=== PATIENT | female | born 1955 | race Caucasian/White ===

== ENCOUNTER 2022-09-05 15:38 | Emergency (ER) | payer MEDICARE, OTHER ==
[~2022-09-05] VITALS: Ht 165.1 cm; Wt 75.3 kg
[2022-09-05] MEDS ORDERED: LIPITOR20 MG PO (18:14)
[2022-09-05] MEDS ORDERED: SEROQUEL XR300 MG PO (18:15)
[2022-09-05] MEDS ORDERED: LAMOTRIGINE150 MG PO (18:15)
== END 2022-09-05 20:32 | disposition home or self-care (01) ==
LOC: ED 15:38
DX: S09.90XA Unspecified injury of head, initial encounter (principal); E78.5 Hyperlipidemia, unspecified; Z88.8 Allergy status to other drugs, medicaments and biological substances; Z88.5 Allergy status to narcotic agent; Z79.899 Other long term (current) drug therapy; W19.XXXA Unspecified fall, initial encounter
CPT/HCPCS: 70450; 96372; 99283-25; J2060

== ENCOUNTER 2022-12-15 13:44 | Emergency (ER) | payer MEDICARE, OTHER ==
[~2022-12-15] VITALS: Ht 165.1 cm; Wt 80.3 kg
[~2022-12-15 13:44] MED LIST: LAMOTRIGINE150 MG PO; LIPITOR20 MG PO; SEROQUEL XR300 MG PO
[2022-12-15 16:10] VITALS: BP 116/101
== END 2022-12-15 16:12 | disposition home or self-care (01) ==
LOC: ED 13:44
DX: S09.90XA Unspecified injury of head, initial encounter (principal); W22.01XA Walked into wall, initial encounter; Z88.5 Allergy status to narcotic agent; Z79.899 Other long term (current) drug therapy
CPT/HCPCS: 70450; 96372; 99283-25; J2060

== ENCOUNTER 2022-12-27 11:14 | Emergency (ER) | payer MEDICARE, OTHER ==
[~2022-12-27] VITALS: Ht 165.1 cm; Wt 80.3 kg
--- OUTSIDE RECORDS SUMMARY | 2022-12-27 11:24 | XMS ---
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 Abhijit VISIT COUNT (12 MO.) [address] TOTAL 4 NOTE: Visits indicate total known visits. 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 - Unspecified injury of head, initial encounter - Walked into wall, initial encounter 09/05/2022 15:39 [facility] [place] TYPE: Emergency COMPLAINT: - HEAD INJURY DIAGNOSES: - Allergy status to narcotic agent - Allergy status to other drugs, medicaments and biological substances - Hyperlipidemia, unspecified - Other long-term (current) drug therapy - Unspecified fall, initial encounter - Unspecified injury of head, initial encounter 07/12/2022 19:15 [facility] [place] TYPE: Emergency DIAGNOSES: - Constipation, unspecified - CONSTIPATED INPATIENT VISIT TRACKING (12 MO.) No inpatient visits to display in this time frame [id number]
[2022-12-27 13:55] VITALS: BP 126/105
== END 2022-12-27 13:57 | disposition home or self-care (01) ==
LOC: ED 11:14
DX: K59.00 Constipation, unspecified (principal); E78.5 Hyperlipidemia, unspecified; Z88.8 Allergy status to other drugs, medicaments and biological substances; Z88.5 Allergy status to narcotic agent; Z79.899 Other long term (current) drug therapy
CPT/HCPCS: 36415; 74177; 80053; 83690; 85025; 96376; 99284-25; J2060; Q9967

== ENCOUNTER 2023-04-11 12:06 | Emergency (ER) | payer MEDICARE, OTHER ==
[~2023-04-11] VITALS: Ht 165.1 cm; Wt 80.3 kg
--- OUTSIDE RECORDS SUMMARY | ~2023-04-11 | XMS | Continuity of Care Document ---
Demographics + + + | Address | [address] | | | [place] [address] | + + + | Preferred Language | Unknown | + + + | Marital Status | Never | + + + | Mosque Affiliation | Unknown | + + + | Race | White | + + + | Ethnic Group | Not or | + + + Author + + + | Author | [facility] | + + + | Organization | [facility] | + + + | Address | [address] | | | [place] [address] | + + + | Phone | | + + + Care Team Providers + + + + | Care Employee Communications Coordinator Name | Role | Phone | + + + + Unavailable | Unavailable | + + + + Unavailable | Unavailable | + + + + Unavailable | Unavailable | + + + + Allergies and Intolerances + + + + + + | date | description | facility | reaction | severity | + + + + + + | (no date) | Gabapentin | [facility] | (no reaction) | (no severity) | [facility] | | | + + + + + + | (no date) | Hydrocodone | [facility] | (no reaction) | (no severity) | | [facility] | | | + + + + + + | (no date) | Gabapentin | [facility] | (no reaction) | (no severity) | | [facility] | | | + + + + + + | (no date) | Hydrocodone | [facility] | (no reaction) | (no severity) | | [facility] | | | + + + + + + | (no date) | Gabapentin | [facility] | (no reaction) | (no severity) | | [facility] | | | + + + + + + | (no date) | Hydrocodone | [facility] | (no reaction) | (no severity) | | [facility] | | | + + + + + + Encounters No information. Functional Status No information. Immunizations No information. Medications + + + + | date | description | facility | + + + + | 2022-09-12 00:00 | LAMOTRIGINE | [facility] | + + + + | 2022-12-15 00:00 | LAMOTRIGINE | [facility] | + + + + | 2022-12-27 00:00 | LAMOTRIGINE | [facility] | + + + + | 2023-02-15 00:00 | LAMOTRIGINE | [facility] | + + + + | 2022-09-12 00:00 | ATORVASTATIN | [facility] | + + + + | 2022-12-15 00:00 | ATORVASTATIN | [facility] | + + + + | 2022-12-27 00:00 | ATORVASTATIN | [facility] | + + + + | 2023-02-15 00:00 | ATORVASTATIN | [facility] | + + + + | 2022-09-12 00:00 | QUETIAPINE FUMARATE | [facility] | + + + + | 2022-12-15 00:00 | QUETIAPINE FUMARATE | [facility] | + + + + | 2022-12-27 00:00 | QUETIAPINE FUMARATE | [facility] | + + + + | 2023-02-15 00:00 | QUETIAPINE FUMARATE | [facility] | + + + + Problems + + + + | date | description | facility | + + + + | 2022-09-05 00:00 | Injury of head | [facility] | + + + + | 2022-09-05 00:00 | Injury of head | [facility] | + + + + | 2022-09-05 15:39 | HYPERLIPIDEMIA, | [facility] | | | UNSPECIFIED | | + + + + | 2022-09-05 15:39 | UNSPECIFIED INJURY OF | [facility] | | | HEAD, INITIAL ENCOUNTER | | + + + + | 2022-09-05 15:39 | UNSPECIFIED FALL, INITIAL | [facility] | | | ENCOUNTER | | + + + + | 2022-09-05 15:39 | OTHER LONG-TERM (CURRENT) | [facility] | | | DRUG THERAPY | | + + + + | 2022-09-05 15:39 | ALLERGY STATUS TO NARCOTIC | [facility] | | | AGENT STATUS | | + + + + | 2022-09-05 15:39 | ALLERGY STATUS TO OTH | [facility] | | | DRUG/MEDS/BIOL SUBST STATUS | | | | | | + + + + | 2022-12-15 00:00 | Minor head injury | [facility] | + + + + | 2022-12-15 00:00 | Minor head injury | [facility] | + + + + | 2022-12-15 13:45 | UNSPECIFIED INJURY OF | [facility] | | | HEAD, INITIAL ENCOUNTER | | + + + + | 2022-12-15 13:45 | WALKED INTO WALL, INITIAL | [facility] | | | ENCOUNTER | | + + + + | 2022-12-15 13:45 | OTHER WORM GROWER (CURRENT) | [facility] | | | DRUG THERAPY | | + + + + | 2022-12-15 13:45 | ALLERGY STATUS TO NARCOTIC | [facility] | | | AGENT STATUS | | + + + + | 2022-12-27 00:00 | Constipation | [facility] | + + + + | 2022-12-27 11:17 | HYPERLIPIDEMIA, | [facility] | | | UNSPECIFIED | | + + + + | 2022-12-27 11:17 | CONSTIPATION, UNSPECIFIED | [facility] | + + + + | 2022-12-27 11:17 | OTHER LONG-TERM (CURRENT) | [facility] | | | DRUG THERAPY | | + + + + | 2022-12-27 11:17 | ALLERGY STATUS TO NARCOTIC | [facility] | | | AGENT STATUS | | + + + + | 2022-12-27 11:17 | ALLERGY STATUS TO OTH | [facility] | | | DRUG/MEDS/BIOL SUBST STATUS | | | | | | + + + + | 2023-01-24 14:21 | AUTISTIC DISORDER | [facility] | + + + + | 2023-01-24 14:21 | OTHER REDUCED MOBILITY | [facility] | + + + + | 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 Results/Labs +--------+--------+ +---------+--------+---------+ | test | date | facility | value | unit | notes | +--------+--------+ +---------+--------+---------+ + + | Result panel 1 | + + + + + +-------+ + + | | 2022-12-27 | [facility] | 7.2 | (missing) | (missing) | | (unavailable [facility] | | | | + + + +-------+ + + + + | Result panel 2 | + + + + + +--------+ + + | | 2022-12-27 | [facility] | 82.7 | (missing) | (missing) | | (unavailable [facility] | | | | + + + +--------+ + + + + | Result panel 3 | + + + + + +-------+ + + | | 2022-12-27 | [facility] | 9.3 | (missing) | (missing) | | (unavailable [facility] | | | | + + + +-------+ + + + + | Result panel 4 | + + + + + +-------+ + + | | 2022-12-27 | [facility] | 5.3 | (missing) | (missing) | | (unavailable [facility] | | | | + + + +-------+ + + + + | Result panel 5 | + + + + + +-------+ + + | | 2022-12-27 | [facility] | 2.5 | (missing) | (missing) | | (unavailable [facility] | | | | + + + +-------+ + + + + | Result panel 6 | + + + + + +-------+ + + | | 2022-12-27 | [facility] | 0.2 | (missing) | (missing) | | (unavailable [facility] | | | | + + + +-------+ + + + + | Result panel 7 | + + + + + +-------+---------+ + | | 2022-12-27 | [facility] | 160 | mg/dL | (missing) | | (unavailable | [facility] | | | | + + + +-------+---------+ + + + | Result panel 8 | + + + + + +------+---------+ + | | 2022-12-27 | [facility] | 16 | mg/dL | (missing) | | (unavailable | [facility] | | | | + + + +------+---------+ + + + | Result panel 9 | + + + + + +--------+---------+ + | | 2022-12-27 | [facility] | 0.93 | mg/dL | (missing) | | (unavailable [facility] | | | | + + + +--------+---------+ + + + | Result panel 10 | + + + + + +------+ + + | | 2022-12-27 | [facility] | 68 | (missing) | (missing) | | (unavailable [facility] | | | + + + +------+ + + + + | Result panel 11 | + + + + + +---------+ + + | | 2022-12-27 | [facility] | 17.20 | (missing) | (missing) | | (unavailable [facility] | | | | + + + +---------+ + + + + | Result panel 12 | + + + + + +--------+ + + | | 2022-12-27 | [facility] | 4.88 | (missing) | (missing) | | (unavailable [facility] | | | | + + + +--------+ + + + + | Result panel 13 | + + + + + +-------+ + + | | 2022-12-27 | [facility] | 145 | (missing) | (missing) | | (unavailable [facility] | | | | + + + +-------+ + + + + | Result panel 14 | + + + + + +-------+ + + | | 2022-12-27 | [facility] | 3.8 | (missing) | (missing) | | (unavailable [facility] | | | | + + + +-------+ + + + + | Result panel 15 | + + + + + +-------+ + + | | 2022-12-27 | [facility] | 107 | (missing) | (missing) | | (unavailable [facility] | | | | + + + +-------+ + + + + | Result panel 16 | + + + + + +------+ + + | | 2022-12-27 | [facility] | 33 | (missing) | (missing) | | (unavailable [facility] | | | | + + + +------+ + + + + | Result panel 17 | + + + + + +-------+ + + | | 2022-12-27 | [facility] | 8.8 | (missing) | (missing) | | (unavailable [facility] | | | + + + +-------+ + + + + | Result panel 18 | + + + + + +-------+---------+ + | | 2022-12-27 | [facility] | 9.6 | mg/dL | (missing) | | (unavailable | [facility] | | | | + + + +-------+---------+ + + + | Result panel 19 | + + + + + +-------+ + + | | 2022-12-27 | [facility] | 8.1 | (missing) | (missing) | | (unavailable [facility] | | | | + + + +-------+ + + + + | Result panel 20 | + + + + + +-------+ + + | | 2022-12-27 | [facility] | 3.6 | (missing) | (missing) | | (unavailable [facility] | | | + + + +-------+ + + + + | Result panel 21 | + + + + + +-------+ + + | | 2022-12-27 | [facility] | 4.5 | (missing) | (missing) | | (unavailable [facility] | | | + + + +-------+ + + + + | Result panel 22 | + + + + + +--------+ + + | | 2022-12-27 | [facility] | 0.80 | (missing) | (missing) | | (unavailable [facility] | | | + + + +--------+ + + + + | Result panel 23 | + + + + + +--------+ + + | | 2022-12-27 | [facility] | 13.3 | (missing) | (missing) | | (unavailable [facility] | | | | + + + +--------+ + + + + | Result panel 24 | + + + + + +-------+ + + | | 2022-12-27 | [facility] | 0.3 | (missing) | (missing) | | (unavailable [facility] | | | | + + + +-------+ + + + + | Result panel 25 | + + + + + +------+ + + | | 2022-12-27 | [facility] | 24 | (missing) | (missing) | | (unavailable [facility] | | | | + + + +------+ + + + + | Result panel 26 | + + + + + +------+ + + | | 2022-12-27 | [facility] | 10 | (missing) | (missing) | | (unavailable [facility] | | | | + + + +------+ + + + + | Result panel 27 | + + + + + +-------+ + + | | 2022-12-27 | [facility] | 142 | (missing) | (missing) | | (unavailable [facility] | | | | + + + +-------+ + + + + | Result panel 28 | + + + + + +-------+ + + | | 2022-12-27 | [facility] | 157 | (missing) | (missing) | | (unavailable | [facility] | | | | + + + +-------+ + + + + | Result panel 29 | + + + + + +--------+ + + | | 2022-12-27 | [facility] | 40.8 | (missing) | (missing) | | (unavailable [facility] | | | | + + + +--------+ + + + + | Result panel 30 | + + + + + +--------+ + + | | 2022-12-27 | [facility] | 83.4 | (missing) | (missing) | | (unavailable [facility] | | | | + + + +--------+ + + + + | Result panel 31 | + + + + + +--------+ + + | | 2022-12-27 | [facility] | 27.3 | (missing) | (missing) | | (unavailable [facility] | | | | + + + +--------+ + + + + | Result panel 32 | + + + + + +--------+ + + | | 2022-12-27 | [facility] | 32.7 | (missing) | (missing) | | (unavailable [facility] | | | | + + + +--------+ + + + + | Result panel 33 | + + + + + +--------+ + + | | 2022-12-27 | [facility] | 13.8 | (missing) | (missing) | | (unavailable [facility] | | | | + + + +--------+ + + + + | Result panel 34 | + + + + + +-------+ + + | | 2022-12-27 | [facility] | 258 | (missing) | (missing) | | (unavailable | [facility] | | | | + + + +-------+ + + Social History + + + + | date | description | facility | + + + + | 2022-09-12 00:00 | Unknown if ever smoked | [facility] | + + + + | 2022-12-15 00:00 | Unknown if ever smoked | [facility] | + + + + | 2022-12-27 00:00 | Unknown if ever smoked | [facility] | + + + + | 2023-02-15 00:00 | Unknown if ever smoked | [facility] | + + + + Vital Signs + + + +---------+ | date | measurement | value | units | + + + +---------+ | 2022-09-05 00:00 | BMI | 27.6 | kg/m2 | + + + +---------+ | 2022-09-05 00:00 | BP_diastolic | 71 | mmHg | + + + +---------+ | 2022-09-05 00:00 | BP_systolic | 98 | mmHg | + + + +---------+ | 2022-09-05 00:00 | heart_rate | 92 | /min | + + + +---------+ | 2022-09-05 00:00 | height_metric | 165.1 | cm | + + + +---------+ | 2022-09-05 00:00 | height_standard | 65 | in | + + + +---------+ | 2022-09-05 00:00 | o2_saturation | 95 | % | + + + +---------+ | 2022-09-05 00:00 | respiration_rate | 16 | /min | + + + +---------+ | 2022-09-05 00:00 | temperature_metric | 37.17 | C | | | | | | + + + +---------+ | 2022-09-05 00:00 | | 98.9 | F | | | temperature_standar | | | | | d | | | + + + +---------+ | 2022-09-05 00:00 | weight_metric | 75.3 | kg | + + + +---------+ | 2022-09-05 00:00 | weight_standard | 166 | lb | + + + +---------+ | 2022-09-05 00:00 | weight_standard | 166.01 | lb | + + + +---------+ | 2022-12-15 00:00 | BMI | 29.5 | kg/m2 | + + + +---------+ | 2022-12-15 00:00 | BP_diastolic | 101 | mmHg | + + + +---------+ | 2022-12-15 00:00 | BP_systolic | 116 | mmHg | + + + +---------+ | 2022-12-15 00:00 | heart_rate | 80 | /min | + + + +---------+ | 2022-12-15 00:00 | height_metric | 165.1 | cm | + + + +---------+ | 2022-12-15 00:00 | height_standard | 65 | in | + + + +---------+ | 2022-12-15 00:00 | o2_saturation | 95 | % | + + + +---------+ | 2022-12-15 00:00 | respiration_rate | 18 | /min | + + + +---------+ | 2022-12-15 00:00 | temperature_metric | 36.67 | C | | | | | | + + + +---------+ | 2022-12-15 00:00 | | 98 | F | | | temperature_standar | | | | | d | | | + + + +---------+ | 2022-12-15 00:00 | weight_metric | 80.29 | kg | + + + +---------+ | 2022-12-15 00:00 | weight_standard | 177 | lb | + + + +---------+ | 2022-12-15 00:00 | weight_standard | 177.01 | lb | + + + +---------+ | 2022-12-27 00:00 | BMI | 29.5 | kg/m2 | + + + +---------+ | 2022-12-27 00:00 | BP_diastolic | 105 | mmHg | + + + +---------+ | 2022-12-27 00:00 | BP_systolic | 126 | mmHg | + + + +---------+ | 2022-12-27 00:00 | heart_rate | 85 | /min | + + + +---------+ | 2022-12-27 00:00 | height_metric | 165.1 | cm | + + + +---------+ | 2022-12-27 00:00 | height_standard | 65 | in | + + + +---------+ | 2022-12-27 00:00 | o2_saturation | 90 | % | + + + +---------+ | 2022-12-27 00:00 | respiration_rate | 20 | /min | + + + +---------+ | 2022-12-27 00:00 | temperature_metric | 36.83 | C | | | | | | + + + +---------+ | 2022-12-27 00:00 | | 98.3 | F | | | temperature_standar | | | | | d | | | + + + +---------+ | 2022-12-27 00:00 | weight_metric | 80.29 | kg | + + + +---------+ | 2022-12-27 00:00 | weight_standard | 177 | lb | + + + +---------+ | 2022-12-27 00:00 | weight_standard | 177.01 | lb | + + + +---------+"
--- OUTSIDE RECORDS SUMMARY | ~2023-04-11 | XMS | Continuity of Care Document ---
Demographics + + + | Address | [address] | | | [place] [address] | + + + | Preferred Language | Unknown | + + + | Marital Status | Never | + + + | Oriental Orthodox Affiliation | Unknown | + + + | Race | White | + + + | Ethnic Group | Not or | + + + Author + + + | Author | [facility] | + + + | Organization | [facility] | + + + | Address | [address] | | | [place] [address] | + + + | Phone | | + + + Care Team Providers + + + + | Care Hospitality Recruiter Name | Role | Phone | + [...] + | 2022-09-12 00:00 | LAMOTRIGINE | [facility] | + + + + | 2022-12-15 00:00 | LAMOTRIGINE | [facility] | + + + + | 2022-12-27 00:00 | LAMOTRIGINE | [facility] | + + + + | 2023-02-15 00:00 | LAMOTRIGINE | [facility] | + + + + | 2022-09-12 00:00 | ATORVASTATIN | [facility] | + + + + | 2022-12-15 00:00 | ATORVASTATIN | [facility] | + + + + | 2022-12-27 00:00 | ATORVASTATIN | [facility] | + + + + | 2023-02-15 00:00 | ATORVASTATIN | [facility] | + + + + | 2022-09-12 00:00 | QUETIAPINE FUMARATE | [facility] | + + + + | 2022-12-15 00:00 | QUETIAPINE FUMARATE | [facility] | + + + + | 2022-12-27 00:00 | QUETIAPINE FUMARATE | [facility] | + + + + | 2023-02-15 00:00 | QUETIAPINE FUMARATE | [facility] | + + + + Problems + + + + | date | description | facility | + + + + | 2022-09-05 00:00 | Injury of head | [facility] | + + + + | 2022-09-05 00:00 | Injury of head | [facility] | + + + + | [...] + + | 2022-09-05 15:39 | OTHER MCC (CURRENT) | [facility] | | | DRUG [...] 2022-12-15 00:00 | Minor head injury | [facility] | + + + + | 2022-12-15 00:00 | Minor head injury | [facility] | + + + + | 2022-12-15 13:45 | UNSPECIFIED INJURY OF | [facility] | | | HEAD, INITIAL ENCOUNTER | | + + + + | 2022-12-15 13:45 | WALKED INTO WALL, INITIAL | [facility] | | | ENCOUNTER | | + + + + | 2022-12-15 13:45 | OTHER CATALYST IMPREGNATOR (CURRENT) | [facility] | | | DRUG THERAPY | | + + + + | 2022-12-15 13:45 | ALLERGY STATUS TO NARCOTIC | [facility] | | | AGENT STATUS | | + + + + | 2022-12-27 00:00 | Constipation | [facility] | + + + + | 2022-12-27 11:17 | HYPERLIPIDEMIA, | [facility] | | | UNSPECIFIED | | + + + + | 2022-12-27 11:17 | CONSTIPATION, UNSPECIFIED | [facility] | + + + + | 2022-12-27 11:17 | OTHER MCC (CURRENT) | [facility] | | | DRUG [...] 00:00 | Unknown if ever smoked | [facility] | + + + + | 2022-12-15 00:00 | Unknown if ever smoked | [facility] | + + + + | 2022-12-27 00:00 | Unknown if ever smoked | [facility] | + + + + | 2023-02-15 00:00 | Unknown if ever smoked | [facility] | + + + + Vital [...]
[2023-04-11] MEDS ORDERED: POLYETHYLENE G500 G2 (12:22)
[2023-04-11 12:57] VITALS: BP 126/104
== END 2023-04-11 12:57 | disposition home or self-care (01) ==
LOC: ED 12:06
DX: S00.93XA Contusion of unspecified part of head, initial encounter (principal); Y04.2XXA Assault by strike against or bumped into by another person, initial encounter; E78.5 Hyperlipidemia, unspecified; Z79.899 Other long term (current) drug therapy
CPT/HCPCS: 99283

== ENCOUNTER 2023-08-15 12:25 | Emergency (ER) | payer OTHER, MEDICARE ==
[~2023-08-15] VITALS: Ht 165.1 cm; Wt 68.0 kg
[~2023-08-15 12:25] MED LIST changes: +POLYETHYLENE G500 G2
[2023-08-15] MEDS ORDERED: VITAMIN D350 MCG PO (13:12)
[2023-08-15] MEDS ORDERED: SENNA8.6 MG PO (13:12)
[2023-08-15 14:16] VITALS: BP 120/75
== END 2023-08-15 14:16 | disposition home or self-care (01) ==
LOC: ED 12:25
DX: S09.90XA Unspecified injury of head, initial encounter (principal); F84.0 Autistic disorder; F88 Other disorders of psychological development; E78.5 Hyperlipidemia, unspecified; Z88.5 Allergy status to narcotic agent; Z88.8 Allergy status to other drugs, medicaments and biological substances; Z79.899 Other long term (current) drug therapy; X58.XXXA Exposure to other specified factors, initial encounter
CPT/HCPCS: 99283

== ENCOUNTER 2024-01-25 13:19 | Emergency (ER) | payer MEDICARE, OTHER ==
[~2024-01-25] VITALS: Ht 182.9 cm; Wt 76.3 kg
[~2024-01-25 13:19] MED LIST changes: +SENNA8.6 MG PO; +VITAMIN D350 MCG PO
[2024-01-25 14:58] VITALS: BP 132/94
== END 2024-01-25 14:59 | disposition home or self-care (01) ==
LOC: ED 13:19
DX: K62.2 Anal prolapse (principal); Z88.5 Allergy status to narcotic agent; Z88.8 Allergy status to other drugs, medicaments and biological substances; Z79.899 Other long term (current) drug therapy
CPT/HCPCS: 99283

== ENCOUNTER 2025-02-24 08:15 | Inpatient (IN) | payer MEDICARE, OTHER ==
[~2025-02-24] VITALS: Ht 182.9 cm; Wt 78.2 kg
[~2025-02-24 08:15] MED LIST changes: +MIRALAX17 GM PO; -POLYETHYLENE G500 G2
[2025-02-24 08:47] LABS: MCH 27.2 PG (25.6-32.2); MCHC 31.3 g/dL (32.2-35.5); MCV 86.9 fL (79.4-94.8); RBC 4.49 M/uL (3.93-5.22)
[2025-02-24 09:05] LABS: ALT (SGPT) 27.0 U/L (14-59); AST (SGOT) 26.0 U/L (15-37); GLOMERULAR FILTRATION RATE,EST 38.0 mL/min (>60); PROTEIN, TOTAL 7.7 g/dL (6.4-8.2); UREA NITROGEN 22.0 mg/dL (7-18)
[2025-02-24 09:11] LABS: LACTIC ACID, BLOOD 6.8 mmol/L (0.4-2.0)
[2025-02-24] MEDS ORDERED: SODIUM CHLORIDE 0.9% 500 ML IV PRN (09:15)
[2025-02-24] MEDS ORDERED: SODIUM CHLORIDE 0.9% 1,000 ML IV PRN (09:15)
[2025-02-24 09:22] LABS: BASOPHILS, MANUAL DIFF 1; LYMPHOCYTES, MANUAL DIFF 19; MONOCYTES, MANUAL DIFF 2; NEUTROPHILS, MANUAL DIFF 78
[2025-02-24 09:32] LABS: BLOOD/HGB, URINE LARGE (Negative); KETONE, URINE TRACE (Negative); LEUK ESTERASE, URINE LARGE (negative); NITRITE, URINE NEGATIVE (negative)
[2025-02-24] MEDS ORDERED: AZITHROMYCIN 500 MG in DEXTROSE 5% 250 ML IV ONE (09:45)
[2025-02-24] MEDS ORDERED: ACETAMINOPHEN 1,000 MG/100 ML VIAL IV ONE (09:45)
[2025-02-24 09:46] LABS: BACTERIA, URINE 4+ /hpf (negative); CASTS, URINE NONE SEEN \\lpf; CRYSTALS, URINE NONE SEEN (0-1+); EPITHELIAL CELLS, URINE 0 /lpf (0-1+); REFLEX CULTURE, URINE Yes (No)
[2025-02-24] MEDS ORDERED: ACETAMINOPHEN 325 MG TAB PO PRN (12:00)
[2025-02-24] MEDS ORDERED: PHARMACY RENAL DOSE ADJUSTMENT 1 DOSE MISC PO SCH (12:00)
[2025-02-24] MEDS ORDERED: SODIUM CHLORIDE 0.9% 1,000 ML IV SCH (12:00)
[2025-02-24 12:45] VITALS: BP 95/53
--- NOTE | 2025-02-24 13:36 | NUR ---
PT RECEIVED FROM TRANSITION MGR PETER. PATIENT PRESENT WITH [facility] PROJECT CAREGIVER NICHOLAS. PATIENT APPEARS TO BE RESTING COMFORTABLY IN BED. PATIENT NONVERBAL AND WHEELCHAIR/BED BOUND WITH HISTORY OF DEVELOPMENTAL DISABILITY. PATIENT NEEDING FREQUENT REDIRECTION FROM IV SITE.
[2025-02-24] MEDS ORDERED: FIBER350 GM PO (16:18)
[2025-02-24] MEDS ORDERED: EAR WAX DROPS15 M1 AU (16:21)
[2025-02-24] MEDS ORDERED: DESITIN 40% PAS28 GM TOP (16:22)
[2025-02-24] MEDS ORDERED: VASELINE18 ML TOP (16:24)
[2025-02-24] MEDS ORDERED: BENZONATATE100 MG PO (16:25)
[2025-02-24] MEDS ORDERED: TYLENOL325 MG PO (16:25)
[2025-02-24] MEDS ORDERED: COLACE100 MG PO (16:26)
[2025-02-24] MEDS ORDERED: ADULT GLYCERIN1 EACH PR (16:29)
--- NOTE | 2025-02-24 16:29 | NUR ---
PT RESTING WITH EYES CLOSED. SITTER SCOTT AT BEDSIDE.
[2025-02-24] MEDS ORDERED: MAGNESIUM CITR296 ML PO (16:31)
--- NOTE | 2025-02-24 16:33 | NUR ---
MED REC COMPLETE
[2025-02-24 17:43] VITALS: BP 146/83
--- NOTE | 2025-02-24 18:32 | NUR ---
SITTER IN ROOM. PT ATE ALL OF DINNER. ST CAME TO SEE AND EVAL PT. STATES SHE ACTUALLY DID WELL BUT WILL ASSESS AGAIN AT BREAKFAST.
--- NOTE | 2025-02-24 18:40 | NUR ---
PATIENT REPLENISHMENT ANALYST IN THE ROOM. SPEECH THERAPY WORKED WITH THE PATIENT.
--- NOTE | 2025-02-24 19:21 | NUR ---
RECEIVED REPORT FROM SEJAL GUERRERO. PT RESTLESS IN BED, NO VERBAL RESPONSE. SITTER AT BEDSIDE FOR SAFETY.
--- NOTE | 2025-02-24 21:15 | NUR ---
PT RESTING IN BED W/ SITTER AT BEDSIDE. PT IS RESTLESS AND CONSTANTLY TOUCHING GOWN, IV TUBING, LINENS, ETC. NON-VERBAL. DOES NOT FOLLOW COMMANDS. HX DD. DOES NOT APPEAR TO HAVE DISCOMFORT. LSC. HRR. BTA, INC BM. NEW PUREWICK PLACED, UO AMEYA AND FOUL SMELLING. RH IV INFUSING NS @ 125MLS/HR. PT SKIN INTACT. CALL LIGHT AT BEDSIDE.
[2025-02-24 21:34] VITALS: BP 115/64
[2025-02-24 21:54] VITALS: BP 115/64
--- NOTE | 2025-02-24 22:11 | EKG ---
[facility] [address] [place] [address] Signed Sinus tachycardia Nonspecific ST and T wave abnormality Abnormal ECG No previous ECGs available Confirmed by Bob Roberts MD () on 02/24/2025 10:11:32 PM Electronically Signed By: BOB ROBERTS MD 02/24/252210 PATIENT NAME: RALEIGH ARCOS Electrocardiogram DATE OF : 57 PHYSICIAN: BOB ROBERTS MD REPORT #: [id number] REPORT IS CONFIDENTIAL AND NOT TO BE RELEASED WITHOUT AUTHORIZATION
--- NOTE | 2025-02-24 22:43 | NUR ---
AWAKE, FIDGETY AND RESTLESS. SITTER AT BEDSIDE FOR LINE/TUBE SAFETY.
--- NOTE | 2025-02-24 23:34 | NUR ---
2 SENIOR LOAN PROCESSOR. PATIENT'S FRESH ATTENDS PLACED AFTER CLEANED. PUREWICK IN PLACE. SIPS OF THICKENED WATER GIVEN. SITTER AT BEDSIDE.
[2025-02-25] VITALS (12 sets, daily range): BP systolic 11–144; BP diastolic 45–92
--- NOTE | 2025-02-25 00:36 | NUR ---
SLEEPING SOUNDLY-APPEARS COMFORTABLE. SITTER REMAINS AT BEDSIDE.
--- NOTE | 2025-02-25 02:42 | NUR ---
AWAKE, APPEARS COMFORTABLE. SITTER AT BEDSIDE.
--- NOTE | 2025-02-25 05:02 | NUR ---
SLEPING SOUNDLY, SITTER AT BEDSIDE.
--- NOTE | 2025-02-25 05:07 | NUR ---
DX: UROSEPSIS, ? ASP PNA. HX DEVELOPMENTALLY DELAYED. NON-VERBAL. W/C BOUND BASELINE. SITTER AT BEDSIDE FOR LINE/TUBE SAFETY. IVF INFUSING. PUREWICK IN PLACE. PT/OT/FINANCIAL COST ANALYST. PT IS A RESIDENT AT 8hands.
[2025-02-25 05:39] LABS: BASOPHILS 0.2 % (0.1-1.2); EOSINOPHILS 1.0 % (0.7-5.8); LYMPHOCYTES 6.3 % (19.3-51.7); MCH 27.3 PG (25.6-32.2); MCHC 31.7 g/dL (32.2-35.5); MCV 86.2 fL (79.4-94.8); MONOCYTES 7.6 % (4.7-12.5); NEUTROPHILS 83.8 % (34.0-71.1); RBC 3.84 M/uL (3.93-5.22)
[2025-02-25 06:01] LABS: ALT (SGPT) 23.0 U/L (14-59); AST (SGOT) 23.0 U/L (15-37); GLOMERULAR FILTRATION RATE,EST 74.0 mL/min (>60); PHOSPHORUS, INORGANIC 2.4 mg/dL (2.5-4.9); PROTEIN, TOTAL 6.7 g/dL (6.4-8.2); UREA NITROGEN 22.0 mg/dL (7-18)
--- NOTE | 2025-02-25 07:20 | NUR ---
REPORT RECIEVED FROM SEJAL QUINTANILLA. PATIENT RESTING IN BED WITH SITTER AT BEDSIDE. NEW BAG OF NS STARTED AND INFUSING CONTINUOUS AT 125ML/HR PER ORDER. CALL LIGHT WITHIN REACH.
--- NOTE | 2025-02-25 08:48 | NUR ---
PATIENT RESTING IN BED WITH SITTER AT BEDSIDE. SITTER REPORTS PATIENT DID EAT SOME BREAKFAST WITHOUT COMPLICATIONS. CALL LIGHT WITHIN REACH.
[2025-02-25] MEDS ORDERED: AZITHROMYCIN 500 MG in DEXTROSE 5% 250 ML IV SCH (09:00)
[2025-02-25] MEDS ORDERED: ENOXAPARIN SODIUM 40 MG/0.4 ML SYR SUB-Q SCH (09:00)
--- NOTE | 2025-02-25 09:45 | NUR ---
PATIENT MEDICATED PER EMAR. PATIENT RESTING IN BED. NS INFUSING CONTINUOUS AT 125ML/HR. ABX STARTED AT THIS TIME. SITTER RELIEVED FOR A BREAK, [employer]OM[employer] MECHANIC HELPER IN ROOM TO SIT WITH PATIENT. PATIENT ASSESSMENT COMPLETED.
--- NOTE | 2025-02-25 09:50 | NUR ---
Stopped to see pt, she is nonverbal. Called [email or web address] phone number in chart is an old number. Person no longer works for [email or web address]. I called the office and was transferred to Nate her cg. History and needs obtained from Nate.
--- NOTE | 2025-02-25 10:05 | NUR ---
UR CLINICAL REVIEW: 2 MN FOR VERSALUS-PER HOTEL RESERVATIONIST MEETS INPT FOR SEPSIS DUE TO UTI WITH NEED FOR IV ABX MEDICARE INPT 02/24/25 @ 1150 ORDER MATCHES REG NO AUTH REQUIRED PER MEDICARE GUIDELINES DISCHARGE TO HOME WITH CAREGIVER WHEN STABLE ADD 1-2 DAYS
--- NOTE | 2025-02-25 10:12 | NUR ---
PATIENT RESTLESS IN BED, SITTER AT BEDSIDE FOR LINE AND TUBE MANAGEMENT/PROTECTION. ABX INFUSING. IV SITE WITHOUT SIGNS/SYMPTOMS OF INFECTION/INFILTRATION. CALL LIGHT WITHIN REACH.
--- NOTE | 2025-02-25 11:23 | NUR ---
PATIENT CAREGIVER (NICHOLAS) IN ROOM FOR UPDATE ON PATIENT. PT AND OT IN ROOM EVALUATING PATIENT AND ASSISTING WITH TRANSFER. IV ABX INFUSING. PATIENT SITTING UP IN CHAIR NOW WITH SITTER AT BEDSIDE FOR LINE AND TUBE MANAGEMENT.
[2025-02-25] MEDS ORDERED: POTASSIUM PHOSPHATE 30 MMOL in DEXTROSE 5% 500 ML IV ONE (12:15)
--- NOTE | 2025-02-25 12:43 | NUR ---
PATIENT MEDICATED PER EMAR. CATHI CNA IN ROOM TO RELIEVE SITTER FOR A LUNCH BREAK. PATIENT WATCHING TV. CALL LIGHT WITHIN REACH.
--- NOTE | 2025-02-25 13:50 | NUR ---
PATIENT MEDICATED PER EMAR. IV FLUSHED WITH 10ML OF NS, DRESSING IS INTACT. DRIVE IN WAITER/WAITRESS OBTAINED VITAL SIGNS. VITAL SIGNS ARE STABLE. SITTER AT BEDSIDE. PATIENT MEDICATED WITH TYLENOL FOR PAIN. CAREGIVER LET THIS RN KNOW PATIENT'S WAY OF ALERTING CAREGIVER OF PAIN IS WHEN "SHE GRABS HER HEAD WITH BOTH HANDS". PATIENT APPEARING MORE RESTLESS AND GRABBING HER HEAD WITH BOTH HANDS, PRN DOSE OF TYLENOL GIVEN.
--- NOTE | 2025-02-25 14:25 | NUR ---
IV ABX COMPLETED. PATIENT BACK IN BED VIA CEILING LIFT. IV FLUIDS INFUSING PER EMAR. SITTER AT BEDSIDE. CALL LIGHT WITHIN REACH.
--- NOTE | 2025-02-25 14:43 | NUR ---
VISITED DURING SPIRITUAL CARE ROUNDS. PT APPEARED TO BE SLEEPING. DID NOT DISTURB. PROVIDED PRAYER.
--- NOTE | 2025-02-25 15:04 | NUR ---
PATIENT RESTING IN BED WITH EYES CLOSED. EVEN AND UNLABORED RESPIRATIONS NOTED. CALL LIGHT AND PERSONAL BELONGINGS ARE WITHIN REACH. SITTER AT BEDSIDE.
--- NOTE | 2025-02-25 16:57 | NUR ---
THIS RN AND HECTOR KAUR WERE ROLLING PATIENT FOR BRIEF AND LINEN CHANGE WHEN PATIENT PULLED IV. PRESSURE DRESSING APPLIED. NEW 20G IV INSERTED BY THIS RN TO PATIENT'S RIGHT FOREARM, PATIENT TOLERATED WELL. PATIENT WITH FRESH LINEN, BRIEF, AND PUREWICK. SITTER AT BEDSIDE. IV INFUSING CONTINUOUS. CALL LIGHT WITHIN REACH. VITAL SIGNS TAKEN AND ARE STABLE.
--- NOTE | 2025-02-25 17:20 | NUR ---
PATIENT SITTING UP IN BED EATING DINNER WITH ASSIST BY HECTOR KAUR.
--- NOTE | 2025-02-25 18:22 | NUR ---
PATIENT NOTED TO BE WARM TO TOUCH. TEMPORAL TEMPERATURE TAKEN AND WAS 100.1. BLANKETS REMOVED AND COOL WASHCLOTH PROVIDED BY HECTOR/JONNA.
--- NOTE | 2025-02-25 19:25 | NUR ---
REPORT RECEIVED FROM ASAF RN. PATIENT IS RESTING IN BED AND IN NAD. SHAKIRA COYLE, IN ROOM WITH PATIENT. IV INFUSING WITHOUT DIFFICULTY.
--- NOTE | 2025-02-25 19:29 | NUR ---
PATIENT LAYING IN BED. THIS SIDE PANEL PADDER AND SIDE PANEL PADDER VINCENT CHECKED PATIENTS BRIEF AND IT WAS DRY.
--- NOTE | 2025-02-25 21:05 | NUR ---
PATIENT LAYING IN BED. THIS EGG PROCESSING SUPERVISOR, HECTOR URIOSTEGUI AND SEJAL TOM CHANGED PATIENTS BRIEF AND COMPLETED KANA CARE. ROSHNI WAS CHANGED.
--- NOTE | 2025-02-25 22:31 | NUR ---
IN ROOM TO GIVE SCHEDULED MEDS, PATIENT RESTING WITH EYES CLOSED, WOKE TO RN ENTERING ROOM. RESPIRATIONS EVEN AND UNLABORED. IVF CONTINUING TO INFUSE PER ORDER. NO NEEDS IDENTIFIED, SITTER IN ROOM
[2025-02-26] VITALS (10 sets, daily range): BP systolic 110–148; BP diastolic 79–97
--- NOTE | 2025-02-26 00:45 | NUR ---
PATIENT RESTING WITH EYES CLOSED, RESPIRATIONS EVEN AND UNLABORED. IVF CONTINUING TO INFUSE WITHOUT DIFFICULTY, SITTER AT BEDSIDE.
--- NOTE | 2025-02-26 01:09 | NUR ---
IVF CHANGED, PATIENT CALM AND COOPERATIVE. IVF INFUSING WITHOUT DIFFICULTY. NO NEEDS, 1:1 SITTER PRESENT.
--- NOTE | 2025-02-26 03:05 | NUR ---
PATIENT IS RESTING WITH EYES CLOSED, RESPIRATIONS EVEN AND UNLABORED. SITTER IN ROOM. NO NEEDS
[2025-02-26 05:26] LABS: BASOPHILS 0.4 % (0.1-1.2); EOSINOPHILS 1.7 % (0.7-5.8); LYMPHOCYTES 8.4 % (19.3-51.7); MCH 27.5 PG (25.6-32.2); MCHC 32.1 g/dL (32.2-35.5); MCV 85.7 fL (79.4-94.8); MONOCYTES 8.7 % (4.7-12.5); NEUTROPHILS 80.1 % (34.0-71.1); RBC 3.78 M/uL (3.93-5.22)
[2025-02-26 05:45] LABS: ALT (SGPT) 18.0 U/L (14-59); AST (SGOT) 20.0 U/L (15-37); GLOMERULAR FILTRATION RATE,EST 97.0 mL/min (>60); PHOSPHORUS, INORGANIC 2.8 mg/dL (2.5-4.9); PROTEIN, TOTAL 6.5 g/dL (6.4-8.2); UREA NITROGEN 16.0 mg/dL (7-18)
--- NOTE | 2025-02-26 06:24 | NUR ---
VS OBTAINED AND RECORDED. INTAKE AND OUTPUT DOCUMENTED. PURWICK CHANGED, PATIENT HAD LARGE BOWEL MOVEMENT, COMPLETE PERICARE PROVIDED. NEW BRIEF, AND CHUX PAD UNDER PATIENT. SITTER IN ROOM WITH PATIENT. SCHEDULED MED ADMINISTERED PER ORDER. NO FURTHER NEEDS.
--- NOTE | 2025-02-26 07:05 | NUR ---
REPORT RECIEVED FROM SEJAL TOM. PATIENT RESTING IN BED FIDGETING WITH HER BLANKET. HECTOR FARMER IN ROOM SITTER. CALL LIGHT WITHIN REACH.
--- NOTE | 2025-02-26 08:35 | NUR ---
PATIENT RESTLESS IN BED, CLINICAL SOCIAL WORK THERAPIST'S IN ROOM PROVIDING CARE. MARLENY AT BEDSIDE SITTER. CALL LIGHT WITHIN REACH.
--- NOTE | 2025-02-26 09:50 | NUR ---
HECTOR FARMER AT BEDSIDE PATIENT SITTER, FEEDING PATIENT.
--- NOTE | 2025-02-26 10:12 | NUR ---
PATIENT ASSESSMENT COMPLETED. ABX INFUSING AT THIS TIME. VITAL SIGNS TAKEN AND ARE STABLE. SITTER AT BEDSIDE. TV TURNED ON. IV FLUSHED WITH 10ML OF NS, DRESSING INTACT. CALL LIGHT WITHIN REACH.
--- NOTE | 2025-02-26 10:18 | NUR ---
FAXED PROG NOTES, PT/OT/ST THERAPY NOTES TO [facility]. PATIENT TO DISCHARGE BACK TO [facility] WHEN MEDICALLY CLEARED WITH CAREGIVERS. NO FUTHER CM NEEDS AT THIS TIME.
--- NOTE | 2025-02-26 10:31 | NUR ---
DID WASH HER FACE THIS MORING. ALSO TRIED TO DO A SHOWER CUP AND SHE TOOK IT OFF. SHE DIDN'T WANT ME TO COMB HER HAIR.
--- NOTE | 2025-02-26 11:25 | NUR ---
ALDA AND I CLEANED PATIENT UP PUT A NEW TAPED ATTEND ALSO PUT A NEW PUREWICK BACK IN. WE ALSO BOOSTED HER UP IN BED. WASHED HER BACK OFF. HEAD OF BED IS UP FOR PATIENT.
--- NOTE | 2025-02-26 12:05 | NUR ---
HECTOR FARMER AT BEDSIDE SITTER FOR PATIENT. PATIENT SITTING UP WATCHING TV. CALL LIGHT IS WITHIN REACH.
--- NOTE | 2025-02-26 13:20 | NUR ---
PATIENT HAD A BM. HECTOR KAUR IN ROOM TO ASSIST THIS RN WITH CHANGING PATIENT. PATIENT THEN TRANSFERED TO IMAGING CHAIR FOR TRANSPORT TO IMAGING FOR SWALLOW EVAL. HECTOR KAUR WITH BURNISHING MACHINE OPERATOR FOR TRANSPORT.
--- NOTE | 2025-02-26 13:27 | NUR ---
PT NOT AVAILABLE FOR VISIT. PROVIDED PRAYER.
--- NOTE | 2025-02-26 14:20 | NUR ---
PATIENT SITTING UP IN CHAIR, WITH HECTOR FARMER THE SITTER AT BEDSIDE. PATIENT IV FLUSHED WITH I10ML OF NS, DRESSING IS INTACT. NS INFUSING AT 125ML/HR. NO REDNESS OR SWELLING NOTED AT IV SITE. CALL LIGHT WITHIN REACH.
--- NOTE | 2025-02-26 14:54 | NUR ---
PATIENT ATE SOME OF HER LUNCH. PATIENT IS UP IN HER CHAIR FOR LUNCH.
--- NOTE | 2025-02-26 14:57 | NUR ---
PATIENT HAD A SWOLLOW TEST THAT I WENT AND ASSISTED HER WITH, THEN WHEN WE GOT BACK HECTOR FARMER AND I MOVED HER TO HER CHAIR. SO SHE CAN SIT UP FOR A WHILE. HECTOR FARMER IS IN WITH PATIENT. AND NOTHING ELSE NEEDED AT THIS TIME.
--- NOTE | 2025-02-26 15:27 | NUR ---
PATIENT SITTING UP IN CHAIR WITH JONNA FARMER AT BEDSIDE. CALL LIGHT WITHIN REACH.
--- NOTE | 2025-02-26 15:43 | NUR ---
PATIENT CAREGIVERS CAME TO VISIT PATIENT AND GET AN UPDATE. UPDATE PROVIDED. DR ROBERTS AT BEDSIDE ALSO GIVING AN UPDATE. PATIENT PULLED IV APART AND DISCONECTED THE CLAVE FROM THE EXTENTION TUBING. ALCOHOL SWABS USED TO CLEAN EXTENTION TUBING, NEW STERILE CLAVE APPLIED. IV FLUSHED WITH 10ML OF NS, DRESSING IS INTACT. NEW IV TUBING FOR NS INFUSION APPLIED. IV INFUSING CONTINUOUS AT 125ML/HR. FRESH GOWN AND LINEN PROVIDED. PATIENT SITTING UP IN CHAIR WITH HECTOR FARMER THE SITTER AT BEDSIDE. CALL LIGHT IS WITHIN REACH.
--- NOTE | 2025-02-26 16:30 | NUR ---
PATIENT SITTING UP IN CHAIR WITH HECTOR FARMER AT BEDSIDE. CALL LIGHT IS WITHIN REACH.
--- NOTE | 2025-02-26 18:41 | NUR ---
NEW BAG OF NS SCANNED AND INFUSING AT 125ML/HR CONTINUOUS PER ORDER. IV SITE WITHOUT SIGNS OR SYMPTOMS OF INFECTION OR INFILTRATION. HECTOR FARMER AT BEDSIDE A SITTER. PATIENT RESTING IN BED WATCHING TV. CALL LIGHT WITHIN REACH.
--- NOTE | 2025-02-26 19:10 | NUR ---
REPORT RECEIVED FROM ELIN POST. pt RESTING IN THE BED. SITTER IN THE RM. NO OTHER NEEDS AT THIS TIME. CALL LIGHT WITHIN REACH. BOARD UPDATED.
--- NOTE | 2025-02-26 19:14 | NUR ---
PATIENT LAYING IN BED. THIS MILITARY ANALYST AND MILITARY ANALYST MARLENY CHANGED PATIENTS BRIEF, DID PERICARE, AND PUREWICK WAS CHANGED.
--- NOTE | 2025-02-26 20:21 | NUR ---
PATIENT LAYING IN BED. PATIENT WAS FED 100ML OF THICKENED APPLE JUICE.
--- NOTE | 2025-02-26 20:45 | NUR ---
ASSESSMENT AND VITAL SIGNS DONE. LUNG SOUNDS ARE CLEAR AT THIS TIME. PURE WICK IN PLACE. BOWEL TONES ARE ACTIVE. IV ASSESSED, WNL. NO OTHER NEEDS AT THIS TIME. SITTER IN THE RM AT THIS TIME FOR LINE AND TUBE MANAGEMENT. CALL LIGHT WITHIN REACH.
--- NOTE | 2025-02-26 21:12 | NUR ---
THIS INTERNAL MEDICINE PHYSICIAN ASSISTANT AND HECTOR ROSENBERG CHANGED PT BRIEF, CHUCKS PAD, AND DRAW SHEET AFTER PT HAD BM. NEW PUREWICK PLACED. NO FURTHER NEEDS STATED AT THIS TIME. CALL LIGHT WITHIN REACH AND HECTOR ROSENBERG REMAINS IN ROOM 1:1.
--- NOTE | 2025-02-26 21:20 | NUR ---
IN RM TO ASMINISTERED IV ABX. pt RESTING IN THE BED. IV ASSESSED, WNL. IVF INFUSING PER ORDER. NO OTHER NEEDS AT THIS TIME. CALL LIGHT WITHIN REACH.
--- NOTE | 2025-02-26 22:18 | NUR ---
PATIENT LAYING IN BED. THIS ONE PIECE EXPANSION MAKER HAND AND SEJAL DIEGO CHANGED PATIENT BRIEF, DID KANA CARE AND CHANGED PUREWICK.
--- NOTE | 2025-02-27 00:16 | NUR ---
pt RESTING IN THE BED. NO NEEDS AT THIS TIME. IVF INFUSING PER ORDER. CALL LIGHT WITHIN REACH.
--- NOTE | 2025-02-27 02:00 | NUR ---
IN RM TO CHECK ON pt. THE TOOL MAKER BENCH SITTER IN RM 1:1. pt RESTING IN THE BED. NO OTHER NEEDS AT THIS TIME. CALL LIGHT WITHIN REACH.
--- NOTE | 2025-02-27 04:43 | NUR ---
pt RESTING IN THE BED WITH EYE CLOSED. RR EVEN AND UNLABORED. CALL LIGHT WITHIN REACH.
[2025-02-27 05:25] VITALS: BP 125/82
[2025-02-27 05:30] LABS: BASOPHILS 0.4 % (0.1-1.2); EOSINOPHILS 2.6 % (0.7-5.8); LYMPHOCYTES 16.0 % (19.3-51.7); MCH 27.1 PG (25.6-32.2); MCHC 31.7 g/dL (32.2-35.5); MCV 85.4 fL (79.4-94.8); MONOCYTES 11.0 % (4.7-12.5); NEUTROPHILS 69.4 % (34.0-71.1); RBC 3.77 M/uL (3.93-5.22)
[2025-02-27 05:42] VITALS: BP 125/82
[2025-02-27 05:45] LABS: ALT (SGPT) 18.0 U/L (14-59); AST (SGOT) 17.0 U/L (15-37); GLOMERULAR FILTRATION RATE,EST 98.0 mL/min (>60); PROTEIN, TOTAL 6.0 g/dL (6.4-8.2); UREA NITROGEN 10.0 mg/dL (7-18)
--- NOTE | 2025-02-27 06:25 | NUR ---
in to administer iv abx per order. PT resting in the bed with eyes closed. rr even and unlabored. pure wick changed at 0545. vital signs done. PT had another bm. no other needs at this time. call light within reach.
--- NOTE | 2025-02-27 07:17 | NUR ---
Pt report received from SEJAL Hargrove. Pt is resting in bed, eyes closed, alexter Rita Huntley with pt.
--- NOTE | 2025-02-27 08:00 | NUR ---
PATIENT WAS IN HER BED AT THIS TIME, HECTOR KAUR AND MARLENY CHANGED PATIENT, GAVE HER A BED BATH, GOT HER A FRESH GOWN AND SOCKS, CHANGED HER SHEETS AND MOVED PATIENT TO HER CHAIR FOR BREAKFAST. HECTOR KAUR WASHED HER FACE AND DID ORAL CARE. I AM IN THE ROOM WITH PATIENT, BUT CALL LIGHT WITH IN REACH AND NOTHING ELSE NEEDED AT THIS TIME.
[2025-02-27 09:51] VITALS: BP 144/82
--- NOTE | 2025-02-27 09:56 | NUR ---
PATIENT IS IN HER CHAIR AT THIS TIME, MEDICAID PLAN COMPLIANCE DIRECTOR CHARTED VITALS AND I&O'S, CHECKED BREIF. CALL LIGHT WITH IN REACH AND MEDICAID PLAN COMPLIANCE DIRECTOR IN ROOM. NOTHING ELSE NEEDED AT THIS TIME.
[2025-02-27 10:02] VITALS: BP 144/82
--- NOTE | 2025-02-27 10:11 | NUR ---
CALLED [facility] LET THEM KNOW OF POTENTIAL D/C TODAY.
[2025-02-27] MEDS ORDERED: CEFDINIR300 MG PO (11:33)
--- NOTE | 2025-02-27 11:52 | NUR ---
ORDERS FAXED TO [facility]
[2025-02-27 11:54] VITALS: BP 134/79
--- NOTE | 2025-02-27 13:43 | NUR ---
Pt report provided to health and social care teacher upon pt discharge
== END 2025-02-27 12:17 | disposition home or self-care (01) | DRG 871 ==
LOC: ED 08:15 → MS 12:13
PROVIDERS: Emergency Medicine; ADMIT Family Medicine; ATTEND Family Medicine
DX: A41.51 Sepsis due to Escherichia coli [E. coli] (principal); J18.9 Pneumonia, unspecified organism; J69.0 Pneumonitis due to inhalation of food and vomit; N39.0 Urinary tract infection, site not specified; F84.0 Autistic disorder; N17.9 Acute kidney failure, unspecified; A41.50 Gram-negative sepsis, unspecified; F39 Unspecified mood [affective] disorder; F89 Unspecified disorder of psychological development; R73.9 Hyperglycemia, unspecified; E83.39 Other disorders of phosphorus metabolism; F41.9 Anxiety disorder, unspecified; E78.5 Hyperlipidemia, unspecified; Z98.890 Other specified postprocedural states; Z87.820 Personal history of traumatic brain injury; Z88.5 Allergy status to narcotic agent; Z88.8 Allergy status to other drugs, medicaments and biological substances; Z79.899 Other long term (current) drug therapy
CPT/HCPCS: 36415; 51702; 71045; 74230; 80053; 81001; 83036; 83605; 83735; 84100; 85025; 87040; 87077; 87088; 87186; 92526; 92610; 92611; 93005; 93010; 99285-25; A9270; J0131; J0456; J0696; J1650; J7030; J7060

== ENCOUNTER 2025-03-22 19:13 | Emergency (ER) | payer MEDICARE, OTHER ==
[~2025-03-22] VITALS: Ht 182.9 cm; Wt 78.2 kg
[~2025-03-22 19:13] MED LIST changes: +ADULT GLYCERIN1 EACH PR; +BENZONATATE100 MG PO; +CEFDINIR300 MG PO; +COLACE100 MG PO; +DESITIN 40% PAS28 GM TOP; +EAR WAX DROPS15 M1 AU; +FIBER350 GM PO; +MAGNESIUM CITR296 ML PO; +TYLENOL325 MG PO; +VASELINE18 ML TOP
--- OUTSIDE RECORDS SUMMARY | 2025-03-22 19:19 | XMS ---
PreManage Notification: RALEIGH ARCOS Security Sales Engagement Manager Events No recent Security Events currently on file CRITERIA MET - [facility] - 2 Visits in 30 Days CARE PROVIDERS -, [facility] Dentist: Coconut Boiler [facility] PHONE: [phone] -Olga- Dentist: Coconut Boiler Current [facility] PHONE: [phone] [facility]: [facility] Current FAMILY PHONE: [phone] TOREY VALERO [facility] Current PHONE: Unknown [place] has no Care Guidelines for this patient. Abhijit VISIT COUNT (12 MO.) 2 TIFFANIE Diehl TOTAL 2 NOTE: Visits indicate total known visits. ED/UCC VISIT TRACKING (12 MO.) 03/22/2025 19:13 TIFFANIE Zamora OR TYPE: Emergency COMPLAINT: - VAGINAL BLEEDING 02/24/2025 08:16 TIFFANIE Zamora [place] TYPE: Emergency COMPLAINT: - VOMITING INPATIENT VISIT TRACKING (12 MO.) 02/24/2025 12:13 TIFFANIE Zamora [place] TYPE: Medical Surgical COMPLAINT: - SEPSIS, UTI, ASPIRATION PNEUMONIA DIAGNOSES: - Acute kidney failure, unspecified - Acute kidney failure, unspecified - Allergy status to narcotic agent - Allergy status to narcotic agent - Allergy status to other drugs, medicaments and biological substances - Allergy status to other drugs, medicaments and biological substances - Anxiety disorder, unspecified - Anxiety disorder, unspecified - Autistic disorder - Autistic disorder - Gram-negative sepsis, unspecified - Gram-negative sepsis, unspecified - Hyperglycemia, unspecified - Hyperglycemia, unspecified - Hyperlipidemia, unspecified - Hyperlipidemia, unspecified - Other disorders of phosphorus metabolism - Other disorders of phosphorus metabolism - Other longwall foreman (current) drug therapy - Other group home (current) drug therapy - Other specified postprocedural states - Other specified postprocedural states - Personal history of traumatic brain injury - Personal history of traumatic brain injury - Pneumonia, unspecified organism - Pneumonia, unspecified organism - Pneumonitis due to inhalation of food and vomit - Pneumonitis due to inhalation of food and vomit - Sepsis due to Escherichia coli [E. coli] - Sepsis due to Escherichia coli [E. coli] - Sepsis, unspecified organism - Unspecified disorder of psychological development - Unspecified disorder of psychological development - Unspecified mood [affective] disorder - Unspecified mood [affective] disorder - Urinary tract infection, site not specified - Urinary tract infection, site not specified [email or web address]
[2025-03-22 19:44] LABS: BASOPHILS 0.6 % (0.1-1.2); EOSINOPHILS 7.0 % (0.7-5.8); LYMPHOCYTES 19.4 % (19.3-51.7); MCH 26.7 PG (25.6-32.2); MCHC 31.3 g/dL (32.2-35.5); MCV 85.2 fL (79.4-94.8); MONOCYTES 9.6 % (4.7-12.5); NEUTROPHILS 63.2 % (34.0-71.1); RBC 4.46 M/uL (3.93-5.22)
[2025-03-22 20:00] LABS: ALT (SGPT) 21.0 U/L (14-59); AST (SGOT) 18.0 U/L (15-37); GLOMERULAR FILTRATION RATE,EST 83.0 mL/min (>60); PROTEIN, TOTAL 7.8 g/dL (6.4-8.2); UREA NITROGEN 15.0 mg/dL (7-18)
[2025-03-22 20:28] LABS: ABO A; ANTIBODY SCREEN NEGATIVE; RH POSITIVE
[2025-03-22] MEDS ORDERED: ETOMIDATE 40 MG/20 ML VIAL IV ONE (20:30)
[2025-03-22 21:44] VITALS: BP 133/118
== END 2025-03-22 21:44 | disposition home or self-care (01) ==
LOC: ED 19:13
PROVIDERS: Family Medicine
DX: N95.0 Postmenopausal bleeding (principal); E78.5 Hyperlipidemia, unspecified; Z88.8 Allergy status to other drugs, medicaments and biological substances; Z88.5 Allergy status to narcotic agent; Z79.2 Long term (current) use of antibiotics
CPT/HCPCS: 36415; 76830; 76856; 80053; 83735; 85025; 86850; 86900; 86901; 96374; 99284-25

== ENCOUNTER 2025-04-06 12:42 | Emergency (ER) | payer MEDICARE, OTHER ==
[~2025-04-06] VITALS: Ht 182.9 cm; Wt 77.0 kg
[~2025-04-06 12:42] MED LIST changes: +CIPROFLOXACIN750 MG PO; +MELOXICAM15 MG PO
--- OUTSIDE RECORDS SUMMARY | 2025-04-06 12:49 | XMS ---
PreManage Notification: RALEIGH ARCOS Security Clinical Laboratory Aide Events No recent Security Events currently on file CRITERIA MET - [facility] - 2 Visits in 30 Days CARE PROVIDERS -, [facility] Dentist: Director Power [facility] PHONE: [phone] -Olga- Dentist: Director Power Current [facility] PHONE: [phone] [facility]: [facility] Current FAMILY PHONE: [phone] TOREY VALERO [facility] Current PHONE: Unknown [place] has no Care Guidelines for this patient. Abhijit VISIT COUNT (12 MO.) 4 TIFFANIE Diehl TOTAL 4 NOTE: Visits indicate total known visits. ED/UCC VISIT TRACKING (12 MO.) 04/06/2025 12:43 TIFFANIE Zamora OR TYPE: Emergency COMPLAINT: - URINE PROBLEM 03/28/2025 15:58 TIFFANIE [facility] TYPE: Emergency COMPLAINT: - NAUSEA/VOMITING 03/22/2025 19:13 TIFFANIE JeannetteTabitha [place] TYPE: Emergency COMPLAINT: - VAGINAL BLEEDING DIAGNOSES: - Abnormal uterine and vaginal bleeding, unspecified - Allergy status to narcotic agent - Allergy status to other drugs, medicaments and biological substances - Hyperlipidemia, unspecified - custodial (current) use of antibiotics - Postmenopausal bleeding 02/24/2025 08:16 TIFFANIE JeannetteTabitha [place] TYPE: Emergency COMPLAINT: - VOMITING INPATIENT VISIT TRACKING (12 MO.) 03/28/2025 19:12 TIFFANIE Zamora OR TYPE: Medical Surgical COMPLAINT: - KIDNEY STONE DIAGNOSES: - Allergy status to narcotic agent - Allergy status to narcotic agent - Allergy status to other drugs, medicaments and biological substances - Allergy status to other drugs, medicaments and biological substances - Autistic disorder - Autistic disorder - Calculus of kidney - Constipation, unspecified - Constipation, unspecified - Hyperlipidemia, unspecified - Hyperlipidemia, unspecified - Other continuous churn buttermaker (current) drug therapy - Other continuous churn buttermaker (current) drug therapy - Pyonephrosis - Pyonephrosis 02/24/2025 12:13 TIFFANIE Zamora [place] TYPE: Medical [...] Other disorders of phosphorus metabolism - Other continuous churn buttermaker (current) drug therapy - Other jail (current) drug therapy - Other specified postprocedural [...] - Urinary tract infection, site not specified [email or web address]
[2025-04-06 14:59] LABS: BASOPHILS 0.7 % (0.1-1.2); EOSINOPHILS 7.6 % (0.7-5.8); LYMPHOCYTES 20.9 % (19.3-51.7); MCH 27.0 PG (25.6-32.2); MCHC 31.6 g/dL (32.2-35.5); MCV 85.5 fL (79.4-94.8); MONOCYTES 8.7 % (4.7-12.5); NEUTROPHILS 61.0 % (34.0-71.1); RBC 4.29 M/uL (3.93-5.22)
[2025-04-06] MEDS ORDERED: KETOROLAC TROMETHAMINE 15 MG/ML VIAL IV ONE (15:00)
[2025-04-06 15:14] LABS: ALT (SGPT) 38.0 U/L (14-59); AST (SGOT) 33.0 U/L (15-37); GLOMERULAR FILTRATION RATE,EST 64.0 mL/min (>60); PROTEIN, TOTAL 8.0 g/dL (6.4-8.2); UREA NITROGEN 18.0 mg/dL (7-18)
[2025-04-06 16:23] LABS: BLOOD/HGB, URINE LARGE (Negative); KETONE, URINE NEGATIVE (Negative); LEUK ESTERASE, URINE SMALL (negative); NITRITE, URINE NEGATIVE (negative)
[2025-04-06 16:29] LABS: EPITHELIAL CELLS, URINE SQUAMOUS 1+ /lpf (0-1+)
[2025-04-06 16:30] LABS: BACTERIA, URINE RARE /hpf (negative); CRYSTALS, URINE CALCIUM OXALATE 1+ (0-1+)
[2025-04-06 16:31] LABS: CASTS, URINE NONE SEEN \\lpf; REFLEX CULTURE, URINE Yes (No)
[2025-04-06 17:15] VITALS: BP 112/71
== END 2025-04-06 17:17 | disposition home or self-care (01) ==
LOC: ED 12:42
PROVIDERS: Emergency Medicine
DX: R33.9 Retention of urine, unspecified (principal); E78.5 Hyperlipidemia, unspecified; Z88.5 Allergy status to narcotic agent; Z88.8 Allergy status to other drugs, medicaments and biological substances; Z79.899 Other long term (current) drug therapy
CPT/HCPCS: 36415; 51701; 51798; 80053; 81001; 85025; 87088; 96374; 96375; 99283-25; J1885; J2405

== ENCOUNTER 2025-05-15 18:51 | Emergency (ER) | payer MEDICARE, OTHER ==
[~2025-05-15] VITALS: Ht 182.9 cm; Wt 70.0 kg
[2025-05-15 21:28] LABS: BLOOD/HGB, URINE LARGE (Negative); KETONE, URINE NEGATIVE (Negative); LEUK ESTERASE, URINE LARGE (negative); NITRITE, URINE NEGATIVE (negative)
[2025-05-15 21:39] LABS: BACTERIA, URINE 3+ /hpf (negative); CASTS, URINE GRANULAR 2+ \\lpf; CRYSTALS, URINE NONE SEEN (0-1+); EPITHELIAL CELLS, URINE SQUAMOUS 1+ /lpf (0-1+); REFLEX CULTURE, URINE Yes (No)
[2025-05-15 22:14] VITALS: BP 130/86
[2025-05-16] MEDS ORDERED: CIPRO500 MG PO (00:10)
[2025-05-16] MEDS ORDERED: CIPROFLOXACIN 500 MG TAB ONE (00:11)
[2025-05-16] MEDS ORDERED: CIPROFLOXACIN 500 MG TAB PO ONE (00:15)
== END 2025-05-16 00:59 | disposition home or self-care (01) ==
LOC: ED 18:51
PROVIDERS: Emergency Medicine
DX: N39.0 Urinary tract infection, site not specified (principal); E78.5 Hyperlipidemia, unspecified; Z88.5 Allergy status to narcotic agent; Z88.8 Allergy status to other drugs, medicaments and biological substances; Z79.899 Other long term (current) drug therapy
CPT/HCPCS: 51701; 51798; 81001; 99283

== ENCOUNTER 2025-07-13 09:15 | Day surgery (SDC) | payer MEDICARE, OTHER ==
[~2025-07-13] VITALS: Ht 170.2 cm; Wt 74.0 kg
[~2025-07-13 09:15] MED LIST changes: +CEFAZOLIN SODIUM 2 GM in SODIUM CHLORIDE 0.9% 100 ML IV SCH; +CIPRO500 MG PO; +IBLOOD GLUCOSE TEST STRIP 1 EA TEST VI PRN; +KETOROLAC TROMETHAMINE 30 MG/ML VIAL IV PRN; +LACTATED RINGER'S 1,000 ML IV SCH; +LIDOCAINE HCL 1% 5 ML SDV INJ ONE; +PHENAZOPYRIDINE HCL 100 MG TAB PO ONE; +TRAMADOL HCL 50 MG TAB PO PRN
[2025-07-13 09:51] VITALS: BP 121/81
[2025-07-13] MEDS ORDERED: CIPROFLOXACIN500 MG PO (09:54)
[2025-07-13] MEDS ORDERED: OXYCODONE HCL5 M3 PO (09:54)
[2025-07-13] MEDS ORDERED: LIDOCAINE HCL 2% 5 ML SDV ONE (11:16)
--- NOTE | 2025-07-13 11:55 | NUR ---
07/13/25 1155 Ca Phelps 1146: PT ARRIVED TO PACU VIA STRETCHER. PT NON AROUSABLE AT THIS TIME. PT ON 6L VIA MASK. 1154: PT TITRATED TO RA AT THIS TIME. PT MOANING BUT NON VERBAL AT BASELINE.
[2025-07-13 12:39] VITALS: BP 132/88
== END 2025-07-13 12:40 | disposition home or self-care (01) ==
LOC: DS 09:15 → OPS 09:15 → DS 10:10 → OPS 10:10 → DS 10:20 → OPS 10:20
PROVIDERS: ATTEND Urology
PROC: 0TP98DZ Removal of Intraluminal Device from Ureter, Via Natural or Artificial Opening Endoscopic (ICD-10-PCS; principal; 2025-07-13 10:20)
DX: Z46.6 Encounter for fitting and adjustment of urinary device (principal); N20.0 Calculus of kidney; R62.50 Unspecified lack of expected normal physiological development in childhood; N39.42 Incontinence without sensory awareness; E78.5 Hyperlipidemia, unspecified; Z99.3 Dependence on wheelchair; Z79.899 Other long term (current) drug therapy; Z88.5 Allergy status to narcotic agent; Z88.8 Allergy status to other drugs, medicaments and biological substances
CPT/HCPCS: 00910; 80048; 81001; 85025; J0688; J2003; J2704; J7121

== ENCOUNTER 2025-07-22 07:58 | Day surgery (SDC) | payer MEDICARE, OTHER ==
[~2025-07-22] VITALS: Ht 170.2 cm; Wt 74.0 kg
[~2025-07-22 07:58] MED LIST changes: -CEFAZOLIN SODIUM 2 GM in SODIUM CHLORIDE 0.9% 100 ML IV SCH; +CIPROFLOXACIN500 MG PO; -KETOROLAC TROMETHAMINE 30 MG/ML VIAL IV PRN; +OXYCODONE HCL5 M3 PO; -PHENAZOPYRIDINE HCL 100 MG TAB PO ONE; -TRAMADOL HCL 50 MG TAB PO PRN
[2025-07-22 08:20] VITALS: BP 116/89
[2025-07-22] MEDS ORDERED: LIDOCAINE HCL 2% 5 ML SDV ONE (09:19)
[2025-07-22 15:14] VITALS: BP 116/79
--- NOTE | 2025-07-22 15:21 | NUR ---
07/22/25 1521 Rachel Ordoñez 1017 PT ARRIVED TO PACU, PT ASLEEP AND RESP EVEN AND UNLABORED. 1025 PT WAKES AND STARTING MOANING AND MOVING AROUND IN BED, PT NONVERBAL AND CAREGIVER PROVIDES CARE. CAREGIVER AT BEDSIDE. HOB INCREASED. PT NOT ANSWERING QUESTIONS AND LOOKING AROUND ROOM. CAREGIVER TALKING TO PT. 1035 PT BECOMES MORE RESTLESS AND STARTS TO MOVED DOWN IN BED. RN HELPS CAREGIVER DRESS PT AND TRASNFER TO PT OWN WHEELCHAIR. 1047 DC INSTRUCTIONS GIVEN AND ALL QUESTIONS ANSWERED. PT EATING SMALL AMOUNT OF APPLESAUCE WITH CAREGIVER. PT DC TO WC VAN WITH CAREGIVER.
--- NOTE | 2025-07-23 15:37 | OR ---
[facility] [address] [place], [place] [address] Signed DATE OF OPERATION: 07/22/2025 SURGEON: Chelsi Davenport DO PREOPERATIVE DIAGNOSIS: Melanotic stools. POSTOPERATIVE DIAGNOSES: 1. Melanotic stools with rectal prolapse. 2. Class I incomplete bowel prep. 3. Scattered colitis. PROCEDURE PERFORMED: Proctosigmoidoscopy. ANESTHESIA: IV sedation. ESTIMATED BLOOD LOSS: None. DRAINS: None. COMPLICATIONS: None. DESCRIPTION OF PROCEDURE: The patient was brought to the GI lab and placed in the supine position. After induction of IV sedation, the patient was then placed in the left lateral position, padded to the satisfaction of anesthesia. Upon examination of the rectum area itself, significant rectal prolapse was noted, it was reducible. Olympus video colonoscope was then introduced into the rectum. Upon encountering the rectum, mostly large amount of solid stool was present throughout the rectum and rectosigmoid. The scope was attempted to advance in the mid sigmoid but it was impossible due to the poor bowel prep that she had. Some mild colitis was noted in the rectosigmoid and sigmoid colon. Due to the nature of the bowel prep being inadequate, decision to terminate the procedure was then made. The scope was then removed. The patient tolerated the procedure well and taken to recovery room in satisfactory condition. Electronically Signed By: CHELSI DAVENPORT DO 07/22/25 1107 Electronically Signed By: CHELSI DAVENPORT DO 07/24/25 0829 PATIENT NAME: RALEIGH ARCOS RECORD #: [id number] OPERATIVE REPORT DATE OF : 57 REPORT #: [id number] PHYSICIAN: CHELSI DAVENPORT DO PCP: TOREY VALERO MD REPORT IS CONFIDENTIAL AND NOT TO BE RELEASED WITHOUT AUTHORIZATION [address] [place], [place] [address] Signed DO KEILA Scott/CHRISSIE /[id number] Copies: ~ Electronically Signed By: CHELSI DAVENPORT DO 07/22/25 1107 Electronically Signed By: CHELSI DAVENPORT DO 07/24/25 0829 PATIENT NAME: RALEIGH ARCOS OPERATIVE REPORT DATE OF : 57 REPORT #: [id number] PHYSICIAN: CHELSI DAVENPORT DO PCP: TOREY VALERO MD REPORT IS CONFIDENTIAL AND NOT TO BE RELEASED WITHOUT AUTHORIZATION
== END 2025-07-22 10:47 | disposition home or self-care (01) ==
LOC: OPS 07:58 → DS 07:58 → OPS 09:40 → DS 11:10
PROVIDERS: ATTEND Surgery
PROC: 0DJD8ZZ Inspection of Lower Intestinal Tract, Via Natural or Artificial Opening Endoscopic (ICD-10-PCS; principal; 2025-07-22 09:40)
DX: K92.1 Melena (principal); K62.3 Rectal prolapse; K52.9 Noninfective gastroenteritis and colitis, unspecified; Z53.8 Procedure and treatment not carried out for other reasons; E78.5 Hyperlipidemia, unspecified; Z79.1 Long term (current) use of non-steroidal anti-inflammatories (NSAID); Z79.899 Other long term (current) drug therapy; Z86.79 Personal history of other diseases of the circulatory system; Z88.5 Allergy status to narcotic agent; Z88.8 Allergy status to other drugs, medicaments and biological substances; Z99.3 Dependence on wheelchair
CPT/HCPCS: 00811; J2003; J2704